=== PATIENT | female | born 1995 ===

== ENCOUNTER 2019-01-08 17:18 | Emergency (ER) | payer OTHER ==
[2019-01-08 17:31] VITALS: BP 114/76
--- NOTE | 2019-01-08 18:04 | UC ---
Throat Pain/Nasal Heri HPI - HPI Summary HPI Summary: gradually worsening ST over 4 days, for 2 days has had fever. is taking DayQuil/ NyQUil for symptom relief - History of Current Complaint Chief Complaint: UCGeneralIllness Stated Complaint: SORE THROAT Time Seen by Provider: 01/08/19 17:54 Hx Obtained From: Patient Hx Last Menstrual Period: 12/05/18 Onset/Duration: Gradual Onset Severity: Mild Pain Intensity: 2 Cough: None Associated Signs & Symptoms: Positive: Hoarseness, Fever - Allergies/Home Medications Allergies/Adverse Reactions: Allergies Allergy/AdvReac Type Severity Reaction Status Date / Time No Known Allergies Allergy Verified 01/08/19 17:32 Home Medications: Home Medications NK [No Home Medications Reported] 01/08/19 [History Confirmed 01/08/19] PMH/Surg Hx/FS Hx/Imm Hx Previously Healthy: Yes - Surgical History Surgical History: None - Family History Known Family History: Positive: Non-Contributory - Social History Occupation: Unemployed Lives: With Family Alcohol Use: None Substance Use Type: None Smoking Status (MU): Never Smoked Tobacco Review of Systems All Other Systems Reviewed And Are Negative: Yes Constitutional: Positive: Fever, Fatigue Skin: Positive: Negative. Negative: Rash Eyes: Positive: Negative ENT: Positive: Sore Throat. Negative: Ear Ache, Sinus Congestion Respiratory: Positive: Negative Cardiovascular: Positive: Negative Gastrointestinal: Positive: Negative Neurological: Positive: Negative. Negative: Headache Psychological: Positive: Negative Is Patient Immunocompromised?: No Physical Exam Triage Information Reviewed: Yes Appearance: Well-Appearing, No Pain Distress, Well-Nourished Vital Signs: Initial Vital Signs Temp 99.3 F 01/08/19 17:25 Pulse 104 01/08/19 17:25 Resp 16 01/08/19 17:25 BP 114/76 01/08/19 17:25 Pulse Ox 97 01/08/19 17:25 Vital Signs Reviewed: Yes Eyes: Positive: Conjunctiva Clear ENT: Positive: Pharyngeal erythema, TMs normal, Hoarse voice, Other - voice is hoarse but no diff breathing or swallowing on exam. Negative: Nasal congestion , Tonsillar swelling, Tonsillar exudate, Sinus tenderness Neck exam: Normal Neck: Positive: Supple, Nontender, No Lymphadenopathy Respiratory Exam: Normal Respiratory: Positive: Lungs clear Cardiovascular Exam: Normal Cardiovascular: Positive: RRR Neurological: Positive: Alert Psychological Exam: Normal Skin Exam: Normal Skin: Negative: Rashes Throat Pain/Nasal Course/Dx - Differential Dx/Diagnosis Differential Diagnosis/HQI/PQRI: Epiglottitis, Laryngitis, Pharyngitis, Sinusitis, Tonsillitis, URI Provider Diagnosis: Pharyngitis Discharge ED - Sign-Out/Discharge Documenting (check all that apply): Patient Departure All imaging exams completed and their final reports reviewed: No Studies - Discharge Plan Condition: Good Disposition: HOME Patient Education Materials: Pharyngitis (ED) Referrals: No Primary Care Phys,NOPCP [Primary Care Provider] - Additional Instructions: drink plenty of fluids and rest use ibuprofen 600mg every 6 hours for sore throat and fever May also add Tylenol as directed if needed Return here if no better 48 hours or if symptoms worsen at anytime - Billing Disposition and Condition Condition: GOOD Disposition: Home
== END 2019-01-08 18:07 | disposition home or self-care (01) ==
LOC: UCEAST 17:18
DX: J02.9 Acute pharyngitis, unspecified (principal)
CPT/HCPCS: 87651; 99201; G0463

== ENCOUNTER 2019-04-17 17:59 | Emergency (ER) | payer OTHER ==
[2019-04-17 19:00] VITALS: BP 114/75
--- NOTE | 2019-04-17 20:08 | UC ---
Throat Pain/Nasal Heri HPI - HPI Summary HPI Summary: 6 DAYS OF SORE THROAT AND PAIN WITH SWALLOWING BUT NO DIFFICULTY SWALLOWING. PATIENT DENIES FEVER, COUGH, CONGESTION, NAUSEA. NO HEADACHE. FEELS OTHERWISE WELL. - History of Current Complaint Chief Complaint: UCGeneralIllness Stated Complaint: SORE THROAT Time Seen by Provider: 04/17/19 19:24 Hx Obtained From: Patient Hx Last Menstrual Period: 04/16/19 Onset/Duration: Gradual Onset, Lasting Days, Still Present Severity: Moderate Pain Intensity: 3 Pain Scale Used: 0-10 Numeric Cough: None Associated Signs & Symptoms: Positive: Negative - Allergies/Home Medications Allergies/Adverse Reactions: Allergies Allergy/AdvReac Type Severity Reaction Status Date / Time No Known Allergies Allergy Verified 01/08/19 17:32 PMH/Surg Hx/FS Hx/Imm Hx Previously Healthy: Yes - Surgical History Surgical History: None - Family History Known Family History: Positive: Non-Contributory - Social History Alcohol Use: Occasionally Substance Use Type: None Smoking Status (MU): Never Smoked Tobacco Review of Systems All Other Systems Reviewed And Are Negative: Yes Constitutional: Positive: Negative ENT: Positive: Sore Throat Respiratory: Positive: Negative Cardiovascular: Positive: Negative Gastrointestinal: Positive: Negative Musculoskeletal: Positive: Negative Neurological: Positive: Negative Physical Exam Triage Information Reviewed: Yes Appearance: Well-Appearing, No Pain Distress, Well-Nourished Vital Signs: Initial Vital Signs Temp 98.6 F 04/17/19 18:55 Pulse 90 04/17/19 18:55 Resp 16 04/17/19 18:55 BP 114/75 04/17/19 18:55 Pulse Ox 98 04/17/19 18:55 Laboratory Tests 04/17/19 19:31 Group A Strep Rapid Negative Vital Signs Reviewed: Yes Eyes: Positive: Conjunctiva Clear ENT: Positive: Hearing grossly normal, TMs normal, Tonsillar swelling, Tonsillar exudate Neck: Positive: Supple, Nontender, No Lymphadenopathy Respiratory Exam: Normal Cardiovascular Exam: Normal Abdomen Description: Positive: Soft Musculoskeletal: Positive: No Edema Neurological: Positive: Alert Psychological: Positive: Age Appropriate Behavior Skin: Negative: Rashes Throat Pain/Nasal Course/Dx - Course Course Of Treatment: STREP TEST NEGATIVE. PATIENT WITH ENLARGED TONSILS WITH EXUDATE. SHE OTHERWISE FEELS WELL. HAVE RECOMMENDED A SHORT BURST OF PREDNISONE TO SEE IF THIS HELPS. OTC IBUPROFEN TO HELP WITH SWELLING AND DISCOMFORT. GIVEN THAT SHE HAS HAD THE SYMPTOMS FOR OVER 6 DAYS, IF SHE DOES NOT IMPROVE WITH IBUPROFEN AND PREDNISONE - PRESCRIPTION FOR AMOXICILLIN HAS BEEN SENT TO PHARMACY. FOLLOW-UP IF NOT IMPROVING WITH TREATMENT. - Differential Dx/Diagnosis Provider Diagnosis: Tonsillitis Discharge ED - Sign-Out/Discharge Documenting (check all that apply): Patient Departure All imaging exams completed and their final reports reviewed: No Studies - Discharge Plan Condition: Stable Disposition: HOME Prescriptions: Amoxicillin PO (*) [Amoxicillin 500 MG CAP*] 500 mg PO Q12H #20 cap predniSONE 20 mg TAB [Deltasone 20 MG TAB*] 40 mg PO DAILY #8 tab Patient Education Materials: Tonsillitis (ED) Referrals: [facility] [Outside] - If Needed Additional Instructions: YOUR SYMPTOMS MAY BE VIRALLY MEDIATED BUT GIVEN THE LENGTH OF TIME YOU HAVE BEEN ILL AND THE APPEARANCE OF YOUR TONSILS WE WILL COVER YOU WITH ANTIBIOTICS. IF YOU START THE MEDICINE BE SURE TO TAKE IT FOR THE FULL COURSE. REST, HYDRATE , OTC MEDS NEEDED. WILL ALSO TREAT WITH PREDNISONE TO HELP WITH INFLAMMATION. SEEK FOLLOW-UP WITH YOUR PCP IF YOU ARE NOT IMPROVING OVER THE NEXT 1-2 WEEKS. GO TO THE ER WITHOUT FAIL IF YOU ARE NOT ABLE TO SWALLOW OR IF YOU DEVELOP INCREASING PAIN, SWELLING, FEVER OR ANY OTHER CONCERNING SYMPTOMS. CALL THE NUMBER BELOW FOR ASSISTANCE IN ESTABLISHING WITH A PCP An additional resource available to assist in finding the appropriate physician for your health care needs is [facility] ([facility]). You may contact them by calling [phone]. - Billing Disposition and Condition Condition: STABLE Disposition: Home
== END 2019-04-17 20:21 | disposition home or self-care (01) ==
LOC: UCEAST 17:59
DX: J03.90 Acute tonsillitis, unspecified (principal)
CPT/HCPCS: 87651; 99212; G0463; J7512

== ENCOUNTER 2019-05-29 17:38 | Emergency (ER) | payer OTHER ==
[2019-05-29 17:52] VITALS: BP 137/90
--- NOTE | 2019-05-29 18:01 | UC ---
Throat Pain/Nasal Heri HPI - HPI Summary HPI Summary: has had exudative pharyngitis for about 3 weeks some relief with prednisone--- strep negative then and is negative now - History of Current Complaint Chief Complaint: UCGeneralIllness Stated Complaint: TROUBLE SWALLOWING Time Seen by Provider: 05/29/19 17:55 Hx Obtained From: Patient Hx Last Menstrual Period: 4 weeks ?: No Onset/Duration: Gradual Onset, Lasting Days - 3, Still Present Pain Intensity: 6 Pain Scale Used: 0-10 Numeric Cough: None - Allergies/Home Medications Allergies/Adverse Reactions: Allergies Allergy/AdvReac Type Severity Reaction Status Date / Time No Known Allergies Allergy Verified 05/29/19 17:52 Home Medications: Home Medications Etonogestrel [Nexplanon] 68 mg IMPLANT DAILY 01/08/19 [History Confirmed ] Amoxicillin PO (*) [Amoxicillin 500 MG CAP*] 500 mg PO Q12H #20 cap 04/17/19 [ Rx Confirmed 05/29/19] predniSONE 50 mg TAB [Deltasone 50 mg TAB] 50 mg PO DAILY #4 tab 05/29/19 [Rx] PMH/Surg Hx/FS Hx/Imm Hx Previously Healthy: Yes - Surgical History Surgical History: None - Family History Known Family History: Positive: Non-Contributory - Social History Occupation: Unemployed Lives: Dormitory/Roommates Alcohol Use: Occasionally Substance Use Type: None Smoking Status (MU): Never Smoked Tobacco Review of Systems All Other Systems Reviewed And Are Negative: Yes Constitutional: Positive: Fever, Fatigue Skin: Positive: Negative Eyes: Positive: Negative ENT: Positive: Sore Throat Respiratory: Positive: Negative Cardiovascular: Positive: Negative Gastrointestinal: Positive: Negative Genitourinary: Positive: Negative Motor: Positive: Negative Neurovascular: Positive: Negative Musculoskeletal: Positive: Negative Neurological/Mental Status: Positive: Negative Psychological: Positive: Negative Is Patient Immunocompromised?: No Physical Exam Triage Information Reviewed: Yes Appearance: No Pain Distress, Well-Nourished, Ill-Appearing - mild Vital Signs: Initial Vital Signs Temp 100 F 05/29/19 17:43 Pulse 113 05/29/19 17:43 Resp 16 05/29/19 17:43 BP 137/90 05/29/19 17:43 Pulse Ox 97 05/29/19 17:43 Vital Signs Reviewed: Yes Eye Exam: Normal Eyes: Positive: Conjunctiva Clear ENT Exam: Normal ENT: Positive: Normal ENT inspection, Hearing grossly normal, Pharyngeal erythema, TMs normal, Tonsillar swelling, Tonsillar exudate, Uvula midline. Negative: Nasal congestion, Trismus, Muffled voice, Hoarse voice, Dental tenderness, Sinus tenderness Dental Exam: Normal Neck exam: Normal Neck: Positive: Supple, Nontender, Enlarged Nodes @ - bilateral anterior cervical Respiratory Exam: Normal Respiratory: Positive: Chest non-tender, Lungs clear, Normal breath sounds, No respiratory distress, No accessory muscle use Cardiovascular Exam: Normal Cardiovascular: Positive: RRR, No Murmur, Pulses Normal, Brisk Capillary Refill Musculoskeletal Exam: Normal Musculoskeletal: Positive: Strength Intact, ROM Intact, No Edema Neurological Exam: Normal Neurological: Positive: Alert, Muscle Tone Normal Psychological Exam: Normal Skin Exam: Normal Diagnostics - Laboratory Lab Results: RST - Throat Pain/Nasal Course/Dx - Course Course Of Treatment: Burst dose of prednisone, throat culture, lab studies, finish amoxicillin pending cultures-[facility] - Differential Dx/Diagnosis Provider Diagnosis: Acute viral syndrome, Exudative pharyngitis Discharge ED - Sign-Out/Discharge Documenting (check all that apply): Patient Departure All imaging exams completed and their final reports reviewed: No Studies - Discharge Plan Condition: Stable Disposition: HOME Prescriptions: predniSONE 50 mg TAB [Deltasone 50 mg TAB] 50 mg PO DAILY #4 tab Patient Education Materials: Mononucleosis (ED), Tonsillitis (ED), Viral Syndrome (ED) Referrals: [facility] [Outside] - 2 Days - Billing Disposition and Condition Condition: STABLE Disposition: Home
[2019-05-30 13:44] LABS: Hematocrit 45 % (35-47); Hemoglobin 15.1 g/dL (12.0-16.0); Mean Corpuscular HGB Conc 34 g/dL (31-36); Mean Corpuscular Hemoglobin 33 pg (27-31); Mean Corpuscular Volume 96 fL (80-97); Mean Platelet Volume 9.5 fL (7.4-10.4); Platelet Count 243 10^3/uL (150-450); Red Blood Count 4.62 10^6 /uL (3.70-4.87); Red Cell Distribution Width 13 % (10-15)
[2019-05-30 13:48] LABS: Albumin 4.6 g/dL (3.2-5.2); Calcium 9.6 mg/dL (8.6-10.3); Potassium 3.7 mmol/L (3.5-5.0); Total Bilirubin 1.3 mg/dL (0.2-1.0)
[2019-05-30 13:54] LABS: Albumin/Globulin Ratio 1.9 (1-3); BUN/Creatinine Ratio 9.4 (8-20); EGFR African American 139.1 (>60); Globulin 2.4 g/dL (2-4)
[2019-05-30 14:14] LABS: ABS Basophils 0.1 10^3/ul (0-0.2); ABS Eosinophils 0.2 10^3/ul (0-0.6); ABS Lymphocytes 1.4 10^3/ul (1.0-4.8); ABS Monocytes 0.6 10^3/ul (0-0.8); ABS Neutrophils 5.7 10^3/ul (1.5-7.7); Eosinophil % 2.2 %; Lymphocyte % 17.7 %; Nucleated Red Blood Cells % 0.2
[2019-05-31 12:38] LABS: EBV Capsid Ag IgG Ab Positive (Negative); EBV Capsid Ag IgM Ab Negative (Negative); Epstein-Barr Nuclear Antigen Positive (Negative)
--- NOTE | 2019-05-31 22:01 | UC ---
- Progress Note Progress Note: Please call patient and inform that EBV testing was positive, which suggests past infection. Continue with symptomatic treatment. Course/Dx - Diagnoses Provider Diagnoses: Acute viral syndrome, Exudative pharyngitis Discharge ED - Sign-Out/Discharge Documenting (check all that apply): Post-Discharge Follow Up All imaging exams completed and their final reports reviewed: No Studies - Discharge Plan Condition: Stable Disposition: HOME Prescriptions: predniSONE 50 mg TAB [Deltasone 50 mg TAB] 50 mg PO DAILY #4 tab Patient Education Materials: Mononucleosis (ED), Tonsillitis (ED), Viral Syndrome (ED) Referrals: [facility] [address] [Outside] - 2 Days - Billing Disposition and Condition Condition: STABLE Disposition: Home
== END 2019-05-29 18:56 | disposition home or self-care (01) ==
LOC: UCEAST 17:38
DX: B34.9 Viral infection, unspecified (principal); J02.9 Acute pharyngitis, unspecified
CPT/HCPCS: 36415; 80053; 85025; 86308; 86664; 86665; 87070; 87651; 99212; G0463; J7512